=== PATIENT | female | born 1940 | race Caucasian/White ===

== ENCOUNTER 2021-08-10 18:18 | Emergency (ER) | payer MEDICARE, SELFPAY ==
[2021-08-10 18:19] VITALS: BP 151/115; PULSE 88; PULSE 89; RESP 14; RESP 17; TEMP 35.9; O2SAT 97; BMI 16.4
--- NOTE | 2021-08-10 19:21 | CT_ITS ---
STUDY: CT BRAIN WITHOUT CONTRAST REASON FOR EXAM: Female, 81 years old. Confusion Individualized dose optimization techniques were used for this CT. TECHNIQUE: Transaxial CT imaging of the brain was performed without administration of intravenous contrast material. COMPARISON: None FINDINGS: There are calcifications around the carotid artery. These are noted in the cavernous carotid arteries. Normal calvarium. Normal soft tissues. Calcified right lens. There is mild cerebral atrophy with widening of the extra-axial spaces and ventricular dilatation. There are areas of decreased attenuation within the white matter tracts of the supratentorial brain, consistent with microvascular disease changes. Normal basal ganglia and thalami. Normal brainstem. There is mild cerebellar atrophy. There is no intracranial hemorrhage. There are no findings of an acute ischemic infarction. Normal visualized paranasal sinuses. ASPECTS Score for Acute Strokes: 05/01 CT/Brain/Head without Contrast IMPRESSION: There are no acute findings. Chronic involutional changes of the brain. Electronically Signed: Oh Sánchez MD at 19:58 EST , Service support ,
--- NOTE | 2021-08-10 19:21 | EKG12_ITS ---
Test Reason : CONFUSION Blood Pressure : / mmHG Vent. Rate : 073 BPM Atrial Rate : 073 BPM P-R Int : 158 ms QRS Dur : 080 ms QT Int : 404 ms P-R-T Axes : 072 -55 043 degrees QTc Int : 445 ms Somatic/Motion Artifact Sinus rhythm with Fusion complexes Left axis deviation Abnormal ECG Confirmed by LOUIS FIGUEROA, ABHI ([id number]), technical writer and editor ASHLIE DANIEL ([id number]) on 08/12/2021 8:58:56 AM Referred By: TAURUS Confirmed By:ABHI MYERS MD
--- NOTE | 2021-08-10 19:22 | EX.ED.DYSGE1 ---
HPI History of Present Illness Chief Complaint: Confusion Informant: patient and family Onset/Context/Timing Onset: Weeks Context: Gradual Onset Timing: Continuous Current Severity: Mild Maximum Severity: Moderate Narrative Narrative: 81-year-old female was very independent and lives alone until December of last year. She has lived with her son for about 6 to 7 months. He states recently she has become more withdrawn. Less independent. She has been staying in her room more. She has had some episodes of both urinary and bowel incontinence. She seems to be sleeping more. He denies any nausea or vomiting. No fever. She is showing signs of confusion. Prior similar symptoms: No Recent Illness/Hospitalization: No PFSH PFSH Medical History no medical history no medical history Home Medications NK 08/10/21 [History Last Taken Unknown] Allergy/AdvReac Type Severity Reaction Status Date / Time No Known Allergies Allergy Verified 08/10/21 18:19 Surgical History Hx of cataract extraction Social History Smoking Status: Former smoker ROS ROS ED ROS Narrative No recent illness. Review of Systems ROS Unobtainable: Denies due to encephalopathy Constitutional Constitutional ED: Denies fever(s) Eyes Eyes: Denies change in vision ENT ENT ED: Denies ear pain Cardiovascular Cardiovascular: Denies chest pain Respiratory/Chest Respiratory/Chest: Denies cough or dyspnea Gastrointestinal Gastrointestinal: Reports diarrhea; Denies abdominal pain, constipation, nausea or vomiting Genitourinary Genitourinary ED: Denies dysuria Musculoskeletal Musculoskeletal: Denies myalgias Integumentary Denies rash Neurologic Neurologic: Denies headache(s) Psychiatric Psychiatric: Denies depression Endocrine Endocrinology: Denies polyuria Allergic/Immunologic Allergic/Immunologic ED: Denies urticaria EXAM Physical Exam Narrative Exam Narrative: 81-year-old female no acute distress. Blood pressure is elevated at 151/115. She is afebrile. Her pulse ox is 97% on room air no signs of hypoxia. HEENT exam unremarkable atraumatic. Moist with membranes. Neck nontender. No lymphadenopathy. No meningismus. Lungs clear to auscultation bilaterally. Heart regular rhythm rate about 90 no murmur. Chest wall nontender but thin. Abdomen soft and nontender normal bowel sounds no peritoneal signs. Moving all 4 extremities. Nontender. No edema. Normal tabular typist strength. Normal dorsi plantarflexion. Neurologically she is awake. She is alert. She answers questions and follows commands. She is extremely hard of hearing but even when she hears a question repeats that she does not know the date, month, year, season or the president night states. She has no slurred speech. No motor deficits. Const Vital Signs: 08/10/21 18:19 08/10/21 20:18 Temperature 96.7 F L Temperature Source Temporal Pulse Rate 88 Respiratory Rate 14 14 Blood Pressure 151/115 H 157/84 H Blood Pressure Mean 127 108 Pulse Ox 97 98 Oxygen Delivery Method Room Air Room Air Positive well nourished and well developed; Negative for obese, cachectic, contractures or unkempt General Appearance ED: well developed and NAD; Negative for unkempt, cachectic, contractures, cyanotic, diaphoretic or pallor Nutritional Appearance: Negative for cachectic or obese HEENT Reports moist mucous membranes Negative for trauma or tenderness Eyes PERRL and EOMs intact bilaterally General Eye ED: Negative for pale conjunctiva or scleral icterus Neck no lymphadenopathy, supple and no JVD General: Negative for tenderness Chest Wall inspection of chest normal and palpation of chest normal Resp normal respiratory effort and clear to auscultation bilaterally Effort and Inspection: Negative for pain with movement Auscultation: Negative for rales, rhonchi or wheezes Cardio regular rate, regular rhythm, S1 normal heart sound, S2 normal heart sound and no murmurs GI normal to inspection, nondistended, normoactive bowel sounds, non-tender, non-distended and no masses Inspection: Negative for abdominal distention Auscultation: normoactive bowel sounds Palpation: soft; Negative for tender, guarding or rebound tenderness present Back/Spine no CVA tenderness General Back: Negative for CVA tenderness Cervical Spine: Negative for cervical spine tenderness Thoracic Spine / Upper Back: Negative for thoracic spinal tenderness or paraspinal muscle tenderness Lumbar Spine / Lower Back: Negative for lumbar spinal tenderness Extremity normal to inspection General Extremety ED: Negative for edema or tenderness General Extremity: Negative for edema Neuro No oriented x3 Neuro Narrative: Patient is very hard of hearing. However when she repeats the questions she does not know the day, date, month, year or president and states. She has normal speech is not slurred. Sensorium / Orientation: alert and orientation impaired; Negative for lethargic or stuporous Motor Exam: strength 5/5 throughout Psych mental status grossly normal Appearance: Negative for unkempt Attitude: No agitated Mood & Affect: anxious; Negative for depressed or tearful Skin no rashes or lesions noted and no wounds General Skin Exam: Negative for jaundice or pallor MDM MDM MDM Narrative Medical decision making narrative: 81-year-old female with decreased mental status. No signs of trauma. CAT scan the labs are being obtained. Repeat exam no change. I discussed all test results with the patient's son. He does want to take her home and wants to try to keep her at home as long as possible. They have an outpatient appointment to follow-up with [facility]. Lab Data Attestation: I reviewed the patient's lab results. Lab results narrative: CBC shows a white count of 4.9. Hemoglobin of 14.5. Platelets 208. Electrolytes unremarkable gap of 5 normal BUN and creatinine. Normal liver enzymes. Urinalysis shows no signs of infections. Negative nitrates. Negative RBCs. Negative WBCs. Negative bacteria. Labs: Laboratory Results - last 24 hr 08/10/21 08/10/21 08/10/21 19:37 19:37 20:10 WBC 4.9 RBC 4.98 Hgb 14.5 Hct 44.5 MCV 89.4 MCH 29.1 MCHC 32.6 RDW Std Deviation 43.6 RDW Coeff of [place] 13.2 Plt Count 208 MPV 9.3 Immature Gran % (Auto) 0.200 Neut % (Auto) 71.4 H Lymph % (Auto) 19.6 [place] % (Auto) 7.2 Eos % (Auto) 1.0 Baso % (Auto) 0.6 Absolute Neuts (auto) 3.5 Absolute Lymphs (auto) 0.95 Nucleated RBC % 0 Sodium 140 Potassium 3.7 Chloride 105 Carbon Dioxide 30.0 Anion Gap 5 BUN 12 Creatinine 0.68 Estim Creat Clear Calc 28.90 Est GFR (MDRD) Af Amer 107 Est GFR (MDRD) Non-Af 88 BUN/Creatinine Ratio 17.6 Glucose 109 H Calcium 9.8 Total Bilirubin 0.50 AST 37 ALT 19 Alkaline Phosphatase 70 Total Protein 6.4 Albumin 3.4 Globulin 3.0 Albumin/Globulin Ratio 1.1 Urine Color Yellow Urine Clarity Clear Urine pH 6.5 Ur Specific [place] 1.015 Urine Protein 30 H Urine Glucose (UA) Normal Urine Ketones 50 H Urine Occult Blood 25 H Urine Nitrite Negative Urine Bilirubin Negative Urine Urobilinogen Normal Ur Leukocyte Esterase Negative Urine RBC 0-5 SEEN Urine WBC 0-5 SEEN Ur Squamous Epith Cells 0 SEEN Calcium Oxalate Crystal 1+ Urine Bacteria 0 SEEN Urine Mucus 0 SEEN Radiography Chest X-Ray - ED: 1 View, Read by ED Physician, Heart, Lungs, Mediastinum, Bony Structures, No Acute Disease and Chronic Changes Diagnostic Testing: Clinical Impression(s) from Imaging Studies Brain CT 08/10/21 19:21 IMPRESSION: There are no acute findings. Chronic involutional changes of the brain. Electronically Signed: Oh Sánchez MD at 19:58 EST , Service support , Chest X-Ray 08/10/21 19:58 IMPRESSION: There are no acute findings. Electronically Signed: Oh Sánchez MD at 20:08 EST , Service support , Portable chest x-ray, single view, interpreted myself the radiologist shows no acute abnormality. CT brain shows chronic changes. Rhythm Strip Rhythm Strip: Sinus Rhythm Rate: 73 Ectopy: None EKG Initial EKG: Attestation: I personally reviewed and interpreted this EKG as follows: Interpretation: Sinus Rhythm and No Acute Injury Pattern Comments: Normal sinus rhythm rate of 73 no acute signs of [place] or ischemia. Discharge Plan Triage Chief Complaint: Confusion ED Provider: Angel Yang Dx/Rx/DC Orders Clinical Impression: Acute confusion Instructions: ED Confusion Prescriptions: No Action NK RF: 0 Primary Care Provider: Care Physician,No Primary Referrals: Marcelo Richardson MD [STAFF PHYSICIAN] - As soon as possible Care Physician,No Primary [Primary Care Provider] - Activity Restrictions/Additional Instructions: Plenty of fluids and rest. Make sure she follows up with a local primary care physician. Her labs, CAT scan and x-ray today were unremarkable. No signs of infection or any acute stroke. This could be onset of dementia. It could be additional confusion due to her poor hearing. Disposition Disposition: Home, Self Care
[2021-08-10] MEDS: 0.9% Normal Saline 1,000 ML 1000 ML IV (19:41)
[2021-08-10 19:45] LABS: Absolute Lymphocyte Count 0.95 X10^3/uL (0.83-4.51); Absolute Neutrophil Count 3.5 X10^3/uL (2.0-7.7); Basophil# 0.03 X10^3/uL; Basophil% 0.6 % (0-1); Eosinophil# 0.05 X10^3/uL; Hematocrit 44.5 % (37-47); Hemoglobin 14.5 g/dL (12.0-15.0); Lymphocyte # 0.95 X10^3/ul (0.83-4.51); Lymphocyte % 19.6 % (19-41); Mean Corp Hgb Conc 32.6 g/dL (32-36); Mean Corpuscular Hgb 29.1 pg (27.0-32.0); Mean Corpuscular Volume 89.4 fL (81-99); Mean Platelet Vol. 9.3 fl (6.2-12.0); Monocyte# 0.35 X10^3/uL; Monocyte% 7.2 % (0-10); NRBC Flagged by Analyzer 0 % (0-5); Neutrophil # 3.46 X10^3/uL (2.7-7.7); Neutrophil % 71.4 % (47-70); Platelet Count 208 K/mm3 (150-450); RBC Distribution Width CV 13.2 % (11.6-14.6); RBC Distribution Width SD 43.6 fl (35.1-43.9); Red Blood Count 4.98 M/mm3 (4.2-5.4); White Blood Count 4.9 K/mm3 (4.4-11.0)
--- NOTE | 2021-08-10 19:58 | RAD_ITS ---
STUDY: XR Chest 1 View 08/10/2021 7:42 PM REASON FOR EXAM: Female, 81 years old. CHEST PAIN Technologist Notes PT ARRIVES TO ED WITH INCREASED CONFUSION AND ABD PAIN. * PT REFUSED THE REMOVAL OF HER BRA Mental status change COMPARISON: None TECHNIQUE: XR Chest 1 View FINDINGS: There is no demonstrated pleural abnormality. Normal heart size. Normal mediastinum. Normal cristy. Prominent appearing increased interstitial lung markings. Normal visualized pulmonary arteries. There is atherosclerotic calcification of the aortic arch with tortuosity. There are diffuse degenerative changes of the visualized thoracic spine. There is degenerative osteoarthritis of the bilateral shoulders. There is no demonstrated abnormality of the visualized soft tissue structures of the upper abdomen. RAD/Chest 1 View (Portable) IMPRESSION: There are no acute findings. Electronically Signed: Oh Sánchez MD at 20:08 EST , Service support ,
[2021-08-10 20:01] LABS: ALB/GLOB Ratio 1.1 RATIO (0.9-2.4); AST(SGOT) 37 U/L (15-37); Alanine Aminotransfer ALT/SGPT 19 U/L (13-56); Albumin, Serum 3.4 g/dL (3.2-5.0); Alkaline Phosphatase 70 U/L (45-117); Anion Gap 5 (5-15); BUN 12 mg/dL (7-18); BUN/Creat Ratio 17.6 RATIO (10-20); Calcium,Total 9.8 mg/dL (8.5-10.1); Chloride 105 mmol/L (98-107); Creatinine, Serum 0.68 mg/dL (0.55-1.02); EST Glomerular Filtration Rate 88 mL/min (>60); Est Glom Filt Rate - Afr Amer 107 mL/min (>60); Glucose 109 mg/dL (74-106); Potassium 3.7 mmol/L (3.5-5.1); Protein, Total 6.4 g/dL (6.4-8.2); Sodium Level 140 mmol/L (136-145)
[2021-08-10 20:18] VITALS: BP 157/84; RESP 14; O2SAT 98
[2021-08-10 20:19] LABS: Bacteria 0 SEEN /hpf (None Seen); Mucous, Urine 0 SEEN /hpf (<or=2+); Squamous Epithelial Cells - UA 0 SEEN /hpf (5-10)
[2021-08-10 20:21] LABS: Color, Urine Yellow (Yellow); Glucose, Dipstick Normal (Normal); Ketone-Dipstick 50 mg/dl (Negative); Leukocyte Esterase-Dipstick Negative /ul (Negative); Nitrite-Dipstick Negative (Negative); Occult Blood-Urine 25 /ul (Negative); Protein-Dipstick 30 mg/dl (Negative); Specific Gravity, Urine 1.015 (1.002-1.030); Urine Bilirubin Dipstick Negative (Negative); Urine Clarity Clear (Clear); Urine Urobilinogen Normal (Normal); Urine pH 6.5 (5.0 - 8.0)
[2021-08-10 20:32] LABS: Calcium Oxalate Crystals Ur 1+ /hpf (<or=2+); Red Blood Cells-Urine 0-5 SEEN /hpf (0-5); White Blood Cells 0-5 SEEN /hpf (0-5)
--- NOTE | 2021-08-10 20:55 | EKG12_ITS ---
Test Reason : CONFUSION Blood Pressure : / mmHG Vent. Rate : 075 BPM Atrial Rate : 075 BPM P-R Int : 176 ms QRS Dur : 086 ms QT Int : 422 ms P-R-T Axes : 000 -55 068 degrees QTc Int : 471 ms Poor data quality, interpretation may be adversely affected Normal sinus rhythm Left anterior fascicular block Abnormal ECG No previous ECGs available Confirmed by BONG FIGUEROA, VITALY ([id number]), editorial clerk ASHLIE DANIEL ([id number]) on 08/16/2021 10:06:36 AM Referred By: TAURUS Confirmed By:VITALY WOODY MD
[2021-08-10 21:35] VITALS: BP 145/78; PULSE 76; RESP 14; TEMP 37; O2SAT 97
== END 2021-08-10 21:47 | disposition home or self-care (01) ==
PROVIDERS: Emergency Provider Emergency Medicine; Visit Provider Emergency Medicine
DX: R41.0 Disorientation, unspecified (principal); Z87.891 Personal history of nicotine dependence
CPT/HCPCS: 70450; 71045; 80053; 81001; 85025; 93005; 96360; 99285; P9612; A4216

== ENCOUNTER 2021-12-17 23:48 | Emergency (ER) | payer MEDICARE, SELFPAY ==
[2021-12-17 23:50] VITALS: BP 140/95; BP 156/126; PULSE 113; RESP 17; TEMP 36.8; O2SAT 99; BMI 16.8
[2021-12-17 23:53] VITALS: BP 140/95; PULSE 113; RESP 17; TEMP 36.8; O2SAT 99
--- NOTE | 2021-12-18 00:39 | CT_ITS ---
STUDY: CT BRAIN WITHOUT CONTRAST REASON FOR EXAM: Female, 81 years old. Weakness RADIATION DOSAGE (If Supplied By Facility): CTDIvol = ( 44.99 ) mGy, DLP = ( 863.60 ) mGycm TECHNIQUE: Transaxial CT imaging of the brain was performed without administration of intravenous contrast material. Individualized dose optimization techniques were used for this CT. COMPARISON: August 10, 2021 CT head. FINDINGS: Normal soft tissue structures. Normal calvarium. There is mild cerebral atrophy with widening of the extra-axial spaces and ventricular dilatation. There are areas of decreased attenuation within the white matter tracts of the supratentorial brain, consistent with microvascular disease changes. Normal basal ganglia and thalami. Normal brainstem. There is mild cerebellar atrophy. There is no intracranial hemorrhage. There are no findings of an acute ischemic infarction. Normal visualized paranasal sinuses. CT/Brain/Head without Contrast IMPRESSION: Atrophy no evidence of acute hemorrhage infarct or edema. Electronically Signed: Shaneka Dickinson MD at 1:20 EDT ,
--- NOTE | 2021-12-18 00:39 | EKG12_ITS ---
Test Reason : CONFUSION Blood Pressure : / mmHG Vent. Rate : 092 BPM Atrial Rate : 092 BPM P-R Int : 158 ms QRS Dur : 086 ms QT Int : 348 ms P-R-T Axes : 061 -59 033 degrees QTc Int : 430 ms Normal sinus rhythm Left anterior fascicular block Abnormal ECG Confirmed by BONG FIGUEROA, VITALY ([id number]), television news video editor RICH REYES ([id number]) on 12/20/2021 1:14:26 PM Referred By: PL Confirmed By:VITALY WOODY MD
--- NOTE | 2021-12-18 00:41 | EDS_ITS ---
HPI History of Present Illness Chief Complaint: Confusion Informant: patient and family Narrative Narrative: History is from patient and son. Most is from the son. Evidently she moved in with him almost 2 years ago. She does have some baseline dementia but is otherwise physically very healthy. He has noticed that last couple days she is not as active. She also seems a little more confused. She is also not eating and drinking as much although she still is eating and drinking. No vomiting. No diarrhea. She has not complained of anything. He did note that there was a larger than normal urinary accident in bed the other day that had a very strong odor. She does have a long history of incontinence. He states she had a very small cough a couple days ago but this is not continued. No fevers. No traumas. PFSH PFSH Home Medications NK 08/10/21 [History Last Taken Unknown] cephalexin 500 mg PO Q12H 7 Days #140 ml 12/18/21 [Rx Last Taken Unknown] Allergy/AdvReac Type Severity Reaction Status Date / Time No Known Allergies Allergy Verified 12/17/21 23:55 Surgical History Hx of cataract extraction Social History Smoking Status: Former smoker ROS ROS ED Constitutional Constitutional ED: Denies fever(s) Eyes Eyes: Denies change in vision ENT ENT ED: Denies rhinorrhea Cardiovascular Cardiovascular: Denies chest pain Respiratory/Chest Respiratory/Chest: Reports cough; Denies dyspnea or sputum Gastrointestinal Gastrointestinal: Denies diarrhea, nausea or vomiting Genitourinary Genitourinary ED: Reports other Details: Incontinence see history of present illness Musculoskeletal Musculoskeletal: Reports other Details: Patient has some chronic soreness of her left and lower back that are not new or different ; Denies myalgias Integumentary Denies rash Neurologic Neurologic: Denies weakness Endocrine Endocrinology: Denies polydipsia or polyuria Allergic/Immunologic Allergic/Immunologic ED: Denies urticaria EXAM Physical Exam Const Vital Signs: 12/17/21 23:50 12/17/21 23:53 Temperature 98.2 F 98.2 F Temperature Source Axillary Axillary Pulse Rate 113 H 113 H Respiratory Rate 17 17 Blood Pressure 140/95 H 140/95 H Blood Pressure Mean 110 110 Pulse Ox 99 99 Oxygen Delivery Method Room Air Room Air Positive well nourished and well developed Constitutional Narrative: Patient is nontoxic. She is lying quietly in bed. She is very hard of hearing. General Appearance ED: well developed; Negative for cyanotic or diaphoretic HEENT Reports dry mucous membranes HEENT Narrative: Mildly dry only. Negative for trauma or tenderness Mouth ED: Yes dry mucous membranes Mouth: dry mucous membranes Eyes General Eye ED: Negative for pale conjunctiva or scleral icterus Neck no JVD Chest Wall inspection of chest normal Resp normal respiratory effort and clear to auscultation bilaterally Resp Narrative: No coughing while I am in the room. Saturations are normal and breathing is easy and unlabored Auscultation: Negative for rales, rhonchi or wheezes Cardio regular rate and regular rhythm GI normal to inspection, nondistended, normoactive bowel sounds and non-tender Palpation: soft Back/Spine no CVA tenderness Extremity normal to inspection General Extremety ED: Negative for edema or tenderness General Extremity: Negative for edema Neuro Sensorium / Orientation: alert Skin no rashes or lesions noted MDM MDM MDM Narrative Medical decision making narrative: Patient CBC is normal. Electrolytes are overall unremarkable. She does have mild dehydration with elevated BUN to creatinine ratio. But creatinine is not abnormal by itself. Troponin is negative. Urine does show signs of UTI. She has positive nitrites, positive leukocyte esterase, and 50-100 white cells. She will be treated. X-ray showed some haziness toward the right. But she had 1 cough yesterday morning and has not been coughing since. Her lungs sound clear and her oxygen levels normal. This may be atelectasis. CT of the head showed no acute process. I discussed options with the son. He states she seems to be back to regular mom. The fluids seem to help her. She is more alert. He is okay taking her home. I will initiate antibiotics here. She does not take pills so we will write for Keflex liquid. To make dosing easier we will do not do this just twice a day. Evidently the son has made contacts about getting a regular primary care physician. I will give her referral number as I think it would be good if she has a regular physician to see. Lab Data Attestation: I reviewed the patient's lab results. Labs: Laboratory Results - last 24 hr 12/18/21 12/18/21 12/18/21 00:07 00:07 01:20 WBC 8.7 RBC 4.81 Hgb 14.2 Hct 43.4 MCV 90.2 MCH 29.5 MCHC 32.7 RDW Std Deviation 44.7 H RDW Coeff of [place] 13.4 Plt Count 155 MPV 11.5 Immature Gran % (Auto) 0.700 Neut % (Auto) 80.6 H Lymph % (Auto) 11.0 L [place] % (Auto) 7.5 Eos % (Auto) 0.0 Baso % (Auto) 0.2 Absolute Neuts (auto) 7.0 Absolute Lymphs (auto) 0.96 Nucleated RBC % 0 Sodium 136 Potassium 4.6 Chloride 102 Carbon Dioxide 26.0 Anion Gap 8 BUN 17 Creatinine 0.76 Estim Creat Clear Calc 29.61 Est GFR (MDRD) Af Amer 94 Est GFR (MDRD) Non-Af 77 BUN/Creatinine Ratio 22.3 H Glucose 118 H Calcium 10.3 H Troponin I High Sens 4 Urine Color Yellow Urine Clarity Clear Urine pH 5.0 Ur Specific [place] 1.025 Urine Protein 15 H Urine Glucose (UA) Normal Urine Ketones 50 H Urine Occult Blood 25 H Urine Nitrite Positive H Urine Bilirubin 1 H Urine Urobilinogen 1 H Ur Leukocyte Esterase 500 H Urine RBC 0-5 SEEN Urine WBC 50-100 SEEN Ur Squamous Epith Cells 0-5 SEEN Ur Transition Epith Cell 0-5 SEEN Urine Bacteria 2+ Hyaline Casts 0-5 SEEN Urine Mucus 1+ Radiography Diagnostic Testing: Clinical Impression(s) from Imaging Studies Brain CT 12/18/21 00:39 IMPRESSION: Atrophy no evidence of acute hemorrhage infarct or edema. Electronically Signed: Shaneka Dickinson MD at 1:20 EDT , Chest X-Ray 12/18/21 01:10 IMPRESSION: Findings is suspicious for a small focus of right pleural effusion right lower lobe atelectasis and/or infiltrate. Left lower lobe atelectasis. Electronically Signed: Shaneka Dickinson MD at 1:23 EDT , Discharge Plan Triage Chief Complaint: Confusion ED Provider: Isacc Lord Dx/Rx/DC Orders Clinical Impression: Urinary tract infection Instructions: ED CYSTITIS Female Adult Prescriptions: New cephalexin 250 mg/5 mL suspension for reconstitution 500 mg PO Q12H 7 Days Qty: 140 RF: 0 No Action NK RF: 0 Primary Care Provider: Care Physician,No Primary Referrals: Jacqueline Morrissey DO [STAFF PHYSICIAN] - 3-5 Days Care Physician,No Primary [Primary Care Provider] - Disposition Disposition: Home, Self Care
[2021-12-18 00:48] LABS: Absolute Lymphocyte Count 0.96 X10^3/uL (0.83-4.51); Basophil# 0.02 X10^3/uL; Basophil% 0.2 % (0-1); Hematocrit 43.4 % (37-47); Hemoglobin 14.2 g/dL (12.0-15.0); Lymphocyte # 0.96 X10^3/ul (0.83-4.51); Mean Corp Hgb Conc 32.7 g/dL (32-36); Mean Corpuscular Hgb 29.5 pg (27.0-32.0); Mean Corpuscular Volume 90.2 fL (81-99); Mean Platelet Vol. 11.5 fl (6.2-12.0); Monocyte# 0.65 X10^3/uL; Monocyte% 7.5 % (0-10); NRBC Flagged by Analyzer 0 % (0-5); Neutrophil # 7.01 X10^3/uL (2.7-7.7); Neutrophil % 80.6 % (47-70); Platelet Count 155 K/mm3 (150-450); RBC Distribution Width CV 13.4 % (11.6-14.6); RBC Distribution Width SD 44.7 fl (35.1-43.9); Red Blood Count 4.81 M/mm3 (4.2-5.4); White Blood Count 8.7 K/mm3 (4.4-11.0)
[2021-12-18 01:07] LABS: Anion Gap 8 (5-15); BUN 17 mg/dL (7-18); BUN/Creat Ratio 22.3 RATIO (10-20); Calcium,Total 10.3 mg/dL (8.5-10.1); Chloride 102 mmol/L (98-107); Creatinine, Serum 0.76 mg/dL (0.55-1.02); EST Glomerular Filtration Rate 77 mL/min (>60); Est Glom Filt Rate - Afr Amer 94 mL/min (>60); Estimated Creatinine Clearance 29.61 ml/min; Glucose 118 mg/dL (74-106); Potassium 4.6 mmol/L (3.5-5.1); Sodium Level 136 mmol/L (136-145); Troponin-I HS 4 pg/mL (3.0-54.0)
--- NOTE | 2021-12-18 01:10 | RAD_ITS ---
STUDY: X-RAY CHEST REASON FOR EXAM: Female, 81 years old. Cough TECHNIQUE: Single AP portable view of the chest. COMPARISON: August 10, 2021 chest x-ray FINDINGS: There is a patchy right lower lobe opacity. There is blunting of the right costophrenic angle. The subtle increased density in the left lung base. Normal size heart. Normal mediastinum and cristy. Normal visualized pulmonary arteries. Normal visualized aortic arch and descending thoracic aorta. There are diffuse degenerative changes of the visualized thoracic spine. Normal visualized ribs, clavicles, and shoulders. There is no demonstrated abnormality of the visualized soft tissue structures of the upper abdomen. RAD/Chest 1 View (Portable) IMPRESSION: Findings is suspicious for a small focus of right pleural effusion right lower lobe atelectasis and/or infiltrate. Left lower lobe atelectasis. Electronically Signed: Shaneka Dickinson MD at 1:23 EDT ,
[2021-12-18 01:28] LABS: Color, Urine Yellow (Yellow); Glucose, Dipstick Normal (Normal); Ketone-Dipstick 50 mg/dl (Negative); Leukocyte Esterase-Dipstick 500 /ul (Negative); Nitrite-Dipstick Positive (Negative); Occult Blood-Urine 25 /ul (Negative); Protein-Dipstick 15 mg/dl (Negative); Specific Gravity, Urine 1.025 (1.002-1.030); Urine Clarity Clear (Clear); Urine Urobilinogen 1 mg/dl (Normal)
[2021-12-18 01:35] LABS: Urine Bilirubin Dipstick 1 mg/dL (Negative)
[2021-12-18 01:36] LABS: Bacteria 2+ /hpf (None Seen); Hyaline Cast 0-5 SEEN /lpf (0-5); Mucous, Urine 1+ /hpf (<or=2+); Red Blood Cells-Urine 0-5 SEEN /hpf (0-5); Squamous Epithelial Cells - UA 0-5 SEEN /hpf (5-10); Transitional Epithelial - Ur 0-5 SEEN /hpf (0-5); White Blood Cells 50-100 SEEN /hpf (0-5)
[2021-12-18] MEDS: Ceftriaxone 1 GM/50 ML BAG IV (02:14)
[2021-12-18 03:02] VITALS: BP 108/61; PULSE 69; RESP 14; O2SAT 98
== END 2021-12-18 03:02 | disposition home or self-care (01) ==
PROVIDERS: Emergency Provider Emergency Medicine; Visit Provider Emergency Medicine
DX: N39.0 Urinary tract infection, site not specified (principal); F03.90 Unspecified dementia, unspecified severity, without behavioral disturbance, psychotic disturbance, mood disturbance, and anxiety; Z87.891 Personal history of nicotine dependence
CPT/HCPCS: 70450; 71045; 80048; 81001; 84484; 85025; 87086; 87088; 87186; 93005; 96365; 99284; J7030; A4216